=== PATIENT | female | born 1980 | race Caucasian/White ===

== ENCOUNTER 2017-04-26 11:59 | Emergency (ER) | payer OTHER ==
[2017-04-26 12:18] LABS: BILIRUBIN,URINE NEGATIVE (NEGATIVE)
[2017-04-26 12:25] LABS: UA CHARGE (STRIP ONLY) YES; UR CULTURE IF IND NOT INDICATED
[2017-04-26] MEDS ORDERED: PHENAZOPYRIDINE 100 MG TABLET PO STA (12:25)
--- NOTE | 2017-04-26 12:28 | ED Physician Documentation ---
PD HPI FEMALE - Stated complaint Stated Complaint: FEMALE - Chief complaint Chief Complaint: Abd Pain - History obtained from History obtained from: Patient - History of Present Illness Timing - onset: Other (1 day urinary frequency and dysuria without back pain, fevers/chills. 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 - Present Medications Home Medications: Ambulatory Orders Medication Instructions Recorded Confirmed Amitriptyline [Elavil] 15 mg PO DAILY 04/26/17 04/26/17 Levothyroxine [Synthroid] 25 mg PO DAILY 04/26/17 04/26/17 Liothyronine [Cytomel] 5 mg PO BID 04/26/17 04/26/17 Metronidazole [Flagyl] 500 mg PO BID #14 tablet 04/26/17 Sertraline [Zoloft] 150 mg PO DAILY 04/26/17 04/26/17 busPIRone [Buspar] 5 mg PO DAILY 04/26/17 04/26/17 - Allergies Allergies/Adverse Reactions: Allergies Allergy/AdvReac Type Severity Reaction Status Date / Time No Known Drug Allergies Allergy Verified 04/26/17 12:04 - Social History Does the pt smoke?: No Smoking Status: Never smoker Does the pt drink ETOH?: Yes Does the pt have substance abuse?: No - Immunizations Immunizations are current?: Yes PD ED PE NORMAL - Vitals Vital signs reviewed: Yes - General General: Alert and oriented X 3, No acute distress - Abdomen Abdomen: Soft, Non tender - Female 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[employer]), Other (Mild thick white dischg with mild cervicitis but no adenexal TTP or CMT.) - Back Back: No CVA TTP - Neuro Neuro: Alert and oriented X 3, Normal speech - Psych Psych: Normal mood, Normal affect Results - Vitals Vitals: Vital Signs - 24 hr 04/26/17 12:03 Temperature 36.6 C Heart Rate 82 Respiratory 16 Rate Blood Pressure 136/88 H O2 Saturation 96 Oxygen O2 Source Room air - Labs Labs: Microbiology 04/26/17 12:45 OTTO Preparation - Final Other - Vaginal 04/26/17 12:45 Wet Prep - Final Cervix Laboratory Tests 04/26/17 04/26/17 12:10 12:10 Urine Color YELLOW Urine Clarity CLEAR Urine pH 6.0 Ur Specific [place] 1.020 1.020 Urine Protein NEGATIVE Urine Glucose (UA) NEGATIVE Urine Ketones NEGATIVE Urine Occult Blood TRACE-INTA Urine Nitrite NEGATIVE Urine Bilirubin NEGATIVE Urine Urobilinogen 0.2 (NORMAL) Ur Leukocyte Esterase NEGATIVE Ur Microscopic Review NOT INDICATED Urine Culture Comments NOT INDICATED Urine HCG, Qual NEGATIVE Departure - Departure Disposition: Home, Self Care Clinical Impression: Bacterial vaginosis Condition: Good Record reviewed to determine appropriate education?: Yes Instructions: ED Vaginosis Bacterial Prescriptions: Metronidazole [Flagyl] 500 mg PO BID #14 tablet Comments: Do not drink alcohol while taking the antibiotic. Return if worse. Follow-up with your doctor on return home. Your blood pressure was elevated today on check into the emergency department. This does not mean that you have hypertension, it is a common phenomenon to come to the emergency department and have elevated blood pressure. I recommend that she see her primary care physician within the week to have it rechecked when you are feeling better.
[2017-04-26] MEDS ORDERED: PHENAZOPYRIDINE 100 MG TABLET PO ONE (12:33)
[2017-04-26 12:47] LABS: HCG UR QUAL NEGATIVE
[2017-04-26 13:30] VITALS: BP 129/72
== END 2017-04-26 13:30 | disposition home or self-care (01) ==
LOC: ED 11:59
DX: N76.0 Acute vaginitis (principal); R03.0 Elevated blood-pressure reading, without diagnosis of hypertension
CPT/HCPCS: 81003; 81025; 87210; 87220; 87491; 87591; 99283; A9270; 81001; 87086